=== PATIENT | male | born 1990 | race Two or more races ===

== ENCOUNTER 2017-11-15 18:16 | Emergency (ER) | payer MEDICAID ==
[~2017-11-15] VITALS: Ht 190.5 cm; Wt 67.5 kg
[2017-11-15] MEDS ORDERED: LIDOCAINE HCL 1% 20ML VIAL (Pyxis) INJ MC ONE (23:30)
[2017-11-15] MEDS ORDERED: BACITRACIN ZINC OINT UDPKT TOP ONE (23:30)
[2017-11-15] MEDS ORDERED: IBUPROFEN 800MG TABLET PO ONE (23:30)
[2017-11-15] MEDS ORDERED: TETANUS, DIPHTHERIA, PERTUSSIS VAC/PF 0.5ML (>7YR OLD) IM ONE (23:30)
[2017-11-15] MEDS ORDERED: LIDOCAINE HCL/PF 1% 10 MG/ML 5ML VIAL IJ SCH (23:45)
[2017-11-16 00:35] VITALS: BP 129/81
== END 2017-11-16 01:24 | disposition home or self-care (01) ==
LOC: ER 18:58
DX: S61.411A Laceration without foreign body of right hand, initial encounter (principal); W45.8XXA Other foreign body or object entering through skin, initial encounter; Y93.61 Activity, american tackle football; Y92.89 Other specified places as the place of occurrence of the external cause; Y99.8 Other external cause status
CPT/HCPCS: 12001; 73130; 90471; 90715; 99284; J3490; X7700; Z7610